=== PATIENT | female | born 1945 | race Caucasian/White ===

== ENCOUNTER 2016-08-12 02:39 | Inpatient (IN) | payer OTHER ==
[~2016-08-12] VITALS: Ht 162.6 cm; Wt 106.7 kg
[~2016-08-12 02:39] MED LIST: ADVAIR 250/501 DISK IH; ALBUTEROL SULF8.5 GM IH; ALBUTEROL2.5 MG/3 M IH; AMIODARONE HCL200 MG PO; AMLODIPINE BESYL5 MG PO; ASCORBIC ACID500 M3 PO; ASPIR-LOW81 MG PO; ASPIRIN325 MG PO; ASPIRIN81 M2 PO; AZITHROMYCIN250 MG PO; AZITHROMYCIN500 M1 PO; Ascorbic Acid,Ester- PO; BENADRYL25 MG PO; CARDIZEM CD,CA120 MG PO; CARDIZEM CD120 M1 PO; CARDIZEM LA240 MG PO; CARDIZEM120 MG PO; CARDIZEM60 MG PO; CELEBREX200 MG PO; COLACE100 MG PO; CRANBERRY FRUIT PO; DAILY VITAMIN1 EAC4 PO; DICYCLOMINE HCL20 MG PO; DOCUSATE SODIU100 M1 PO; DULCOLAX10 MG PR; Dulcolax PO; ENDOCET 5-3251 EACH PO; EXTRA STRENGTH500 M1 PO; FLUOXETINE HCL40 MG; FLUOXETINE HCL40 MG PO; FOLIC ACID1 MG PO; FUROSEMIDE20 MG PO; FUROSEMIDE40 MG PO; Folvite PO; IBUPROFEN200 M1 PO; INHALER; K-DUR10 MEQ PO; KLOR-CON SPRIN10 MEQ PO; LANTUS 3 M100 UNITS1 SC; LASIX20 MG PO; LASIX20 MG/2 ML IM; LASIX40 MG PO; LEVEMIR100 UNIT/2 SC; LEVOTHROID,S0.025 M1 GT; LEVOTHYROXINE25 MCG PO; LEVOTHYROXINE50 MCG PO; LISINOPRIL10 MG PO; LISINOPRIL5 MG PO; LOPRESSOR50 MG PO; LOVAZA1 GM PO; Levothroid,Synthroid PO; Lovaza PO; MATZIM LA240 MG PO; MATZIM LA360 MG PO; METOPROLOL TART25 MG PO; METOPROLOL TART50 MG PO; MULTIVITAMIN1 EAC2 PO; NORVASC5 MG PO; NOVOLOG PE100 UNITS/ SC; Norvasc PO; OXYCODONE HCL5 MG PO; POTASSIUM CHLO10 ME4 PO; POTASSIUM CHLO10 MEQ PO; PRAVACHOL40 MG PO; PRAVASTATIN SOD40 MG PO; PREDNISONE10 MG PO; PREDNISONE20 MG PO; PREDNISONE5 MG PO; PRINZIDE 20-251 EACH PO; PROAIR HFA8.5 GM IH; PROTONIX40 MG PO; PROVENTIL,2.5 MG/3 M IH; PROZAC40 MG PO; PROzac PO; Roxicet,Percocet 5/3 PO; SENNA8.6 MG PO; SENOKOT,SENN1 TABLET PO; SIMVASTATIN40 M1 PO; SIMVASTATIN40 MG PO; SPIRIVA1 INHALATI IH; STOOL SOFTENER100 M1 PO; SYMBICORT60 INHALAT IH; SYNTHROID25 MCG PO; SYNTHROID50 MCG PO; Senokot S,Pericolace PO; TOPROL XL25 MG PO; TUMS500 MG PO; TYLENOL EXTRA500 MG PO; TYLENOL REGULA325 MG PO; Theragran PO; VICODIN,LORT1 TABLET PO; VITAMIN C500 M1 PO; WARFARIN SODIUM4 MG PO; WARFARIN SODIUM5 MG PO; XARELTO20 MG PO; ZESTORETIC 20-1 EAC1; Zestoretic,Prinzide PO; celeBREX PO; oxyCODONE PO
[2016-08-12 03:14] LABS: HEMATOCRIT 38.7 % (36.0-46.0); MCH 28.2 PG (29.0-34.0); MCHC 31.8 G/DL (30.0-36.0); MCV 88.8 FL (83-99); MEAN PLAT.VOLUME 10.1 uM^3 (9.5-12.4); PLATELET COUNT 279 K/uL (156-360); RBC DIS.WIDTH-CV 15.9 % (11.8-14.6); RBC DIS.WIDTH-SD 51.9 % (39-53); RED BLOOD COUNT 4.36 M/uL (3.80-5.20); WHITE BLOOD COUNT 9.7 K/uL (4.1-10.2)
[2016-08-12 03:22] LABS: CHLORIDE 105 mEq/L (99-109); POTASSIUM 3.8 mEq/L (3.7-5.4); SODIUM 136 mEq/L (136-147)
[2016-08-12 03:23] LABS: PTT 40.4 (25-32)
[2016-08-12 03:24] LABS: GLUCOSE 92 mg/dL (70-99); PROTHROMBIN TIME 53.1 (9.2-11.2)
[2016-08-12 03:25] LABS: ANION GAP 9 MEQ/L (2-14)
[2016-08-12 03:27] LABS: GFR ESTIMATE (CALCULATED) 52 mL/min/
[2016-08-12 03:28] LABS: UREA NITROGEN (BUN) 38 mg/dL (9-23)
[2016-08-12 03:35] LABS: TROP-I INTERPRETATION NEGATIVE; TROPONIN-I 0.04 ng/mL (0.0-0.30)
[2016-08-12] MEDS ORDERED: LISINOPRIL10 MG PO (04:52)
[2016-08-12] MEDS ORDERED: CARBIDOPA-LEVO1 EAC5 PO (05:06)
[2016-08-12] MEDS ORDERED: DILTIAZEM 24HR120 MG PO (05:06)
[2016-08-12] MEDS ORDERED: ALLERGY RELIE15.8 ML BOTH NARES (05:07)
[2016-08-12] MEDS ORDERED: BREO ELLIPTA I1 EACH IH (05:07)
[2016-08-12] MEDS ORDERED: BUMETANIDE1 MG PO (05:07)
[2016-08-12] MEDS ORDERED: INCRUSE ELLI62.5 MCG IH (05:08)
[2016-08-12 09:16] LABS: ADD MIUA? YES; BILIRUBIN NEGATIVE; BLOOD SMALL; COLOR YELLOW ((YELLOW)); GLUCOSE (STRIP) NEGATIVE; KETONES NEGATIVE; LEUKOCYTES SMALL; NITRITE NEGATIVE; PROTEIN (STRIP) NEGATIVE; UROBILINOGEN 0.2 MG/DL (0.2-1.0)
[2016-08-12 09:22] LABS: BACTERIA RARE /HPF; EPITHELIAL CELLS RARE /HPF; MUCUS NONE SEEN /LPF; UCUL ADDED? NO
[2016-08-12 09:37] LABS: HEMATOCRIT 38.7 % (36.0-46.0); MCH 28.2 PG (29.0-34.0); MCHC 31.3 G/DL (30.0-36.0); MCV 90.2 FL (83-99); MEAN PLAT.VOLUME 10.5 uM^3 (9.5-12.4); PLATELET COUNT 269 K/uL (156-360); RBC DIS.WIDTH-CV 16.2 % (11.8-14.6); RBC DIS.WIDTH-SD 53.4 % (39-53); RED BLOOD COUNT 4.29 M/uL (3.80-5.20); WHITE BLOOD COUNT 10.9 K/uL (4.1-10.2)
[2016-08-12 09:50] LABS: CHLORIDE 105 mEq/L (99-109); POTASSIUM 3.6 mEq/L (3.7-5.4); SODIUM 137 mEq/L (136-147)
[2016-08-12 09:52] LABS: GLUCOSE 98 mg/dL (70-99)
[2016-08-12 09:53] LABS: ANION GAP 10 MEQ/L (2-14)
[2016-08-12 09:54] LABS: TOTAL BILIRUBIN 0.5 mg/dL (0.0-1.0)
[2016-08-12 09:55] LABS: ALKALINE PHOSPHATASE 89 IU/L (3-129)
[2016-08-12 09:56] LABS: GFR ESTIMATE (CALCULATED) 58 mL/min/
[2016-08-12 09:57] LABS: UREA NITROGEN (BUN) 32 mg/dL (9-23)
[2016-08-12 09:58] LABS: PROTHROMBIN TIME 48.5 (9.2-11.2); PTT 41.1 (25-32)
[2016-08-12 10:01] LABS: INTER. NORMALIZED RATIO 4.5; TROP-I INTERPRETATION NEGATIVE; TROPONIN-I 0.03 ng/mL (0.0-0.30)
[2016-08-12 12:50] VITALS: BP 102/70
[2016-08-12 15:15] LABS: TROP-I INTERPRETATION NEGATIVE; TROPONIN-I 0.05 ng/mL (0.0-0.30)
[2016-08-12 17:15] VITALS: BP 132/71
[2016-08-12 19:13] VITALS: BP 94/50
[2016-08-12 23:44] VITALS: BP 106/56
[2016-08-13 04:27] VITALS: BP 127/78
[2016-08-13 06:06] LABS: EOSINOPHIL (%) 1.4 % (0-5); EOSINOPHIL COUNT 0.1 K/uL (0-0.3); HEMATOCRIT 36.9 % (36.0-46.0); IMMATURE GRANULOCYTE (%) 0.7 % (0.0-0.7); IMMATURE GRANULOCYTE COUNT 0.1 K/uL; INSTRUMENT ABS NEUTROPHIL CT 5.5 K/uL; LYMPHOCYTE COUNT 0.9 K/uL (1.0-2.8); MCH 28.2 PG (29.0-34.0); MCHC 31.2 G/DL (30.0-36.0); MCV 90.4 FL (83-99); MEAN PLAT.VOLUME 10.5 uM^3 (9.5-12.4); MONOCYTE (%) 7.9 % (3-12); MONOCYTE COUNT 0.6 K/uL (0-0.8); NEUTROPHIL (%) 76.4 % (45-76); NEUTROPHIL COUNT 5.5 K/uL (1.8-6.4); PLATELET COUNT 205 K/uL (156-360); RBC DIS.WIDTH-CV 15.9 % (11.8-14.6); RBC DIS.WIDTH-SD 52.9 % (39-53); RED BLOOD COUNT 4.08 M/uL (3.80-5.20); WHITE BLOOD COUNT 7.1 K/uL (4.1-10.2)
[2016-08-13 06:21] LABS: INTER. NORMALIZED RATIO 4.3; PROTHROMBIN TIME 45.5 (9.2-11.2); PTT 45.2 (25-32)
[2016-08-13 06:22] LABS: INTER. NORMALIZED RATIO 4.3; PROTHROMBIN TIME 45.5 (9.2-11.2)
[2016-08-13 06:29] LABS: ANION GAP 10 MEQ/L (2-14); CHLORIDE 105 MEQ/L (99-109); GFR ESTIMATE (CALCULATED) 58 mL/min/; GLUCOSE 86 mg/dL (70-99); SAMPLE HEMOLYSIS CHECK 0; SAMPLE ICTERIC CHECK 0; SAMPLE LIPEMIA CHECK 0; SODIUM 138 MEQ/L (136-147); UREA NITROGEN (BUN) 27 mg/dL (9-23)
[2016-08-13 07:17] VITALS: BP 109/70
[2016-08-13 11:04] VITALS: BP 105/67
[2016-08-13 15:11] VITALS: BP 113/58
[2016-08-13 19:05] VITALS: BP 127/73
[2016-08-14 00:01] VITALS: BP 136/56
[2016-08-14 05:36] LABS: PTT 41.4 (25-32)
[2016-08-14 05:59] LABS: INTER. NORMALIZED RATIO 2.9; PROTHROMBIN TIME 30.7 (9.2-11.2)
[2016-08-14 06:34] LABS: ANION GAP 9 MEQ/L (2-14); CHLORIDE 106 MEQ/L (99-109); GFR ESTIMATE (CALCULATED) > 59 mL/min/; POTASSIUM 4.1 MEQ/L (3.7-5.4); SAMPLE HEMOLYSIS CHECK 0; SAMPLE ICTERIC CHECK 0; SAMPLE LIPEMIA CHECK 0; SODIUM 139 MEQ/L (136-147); UREA NITROGEN (BUN) 23 mg/dL (9-23)
[2016-08-14 06:37] LABS: GLUCOSE 109 mg/dL (70-99)
[2016-08-14 07:30] VITALS: BP 106/52
[2016-08-14] MEDS ORDERED: LISINOPRIL10 MG PO (10:47)
[2016-08-14] MEDS ORDERED: DILTIAZEM 24HR120 MG PO (10:47)
[2016-08-14] MEDS ORDERED: DIGOXIN250 MCG PO (10:57)
[2016-08-14 10:59] VITALS: BP 116/63
[2016-08-14] MEDS ORDERED: COUMADIN3 MG PO (13:28)
== END 2016-08-14 14:29 | disposition home health service (06) | DRG 309 ==
LOC: EME 02:39 → EDOF 05:53 → 4EAST 05:53
PROVIDERS: Emergency Medicine; Hospitalist; Internal Medicine; Student in an Organized Health Care Education/Training Program
DX: I48.0 Paroxysmal atrial fibrillation (principal); I42.9 Cardiomyopathy, unspecified; I50.32 Chronic diastolic (congestive) heart failure; I11.0 Hypertensive heart disease with heart failure; G20 Parkinson's disease; E11.9 Type 2 diabetes mellitus without complications; D64.9 Anemia, unspecified; E03.9 Hypothyroidism, unspecified; K21.9 Gastro-esophageal reflux disease without esophagitis; E78.5 Hyperlipidemia, unspecified; I25.10 Atherosclerotic heart disease of native coronary artery without angina pectoris; I27.2 Other secondary pulmonary hypertension; I27.81 Cor pulmonale (chronic); I49.5 Sick sinus syndrome; J44.9 Chronic obstructive pulmonary disease, unspecified; N39.0 Urinary tract infection, site not specified; R79.1 Abnormal coagulation profile; Z68.39 Body mass index [BMI] 39.0-39.9, adult; Z79.01 Long term (current) use of anticoagulants; Z87.891 Personal history of nicotine dependence; Z95.1 Presence of aortocoronary bypass graft; Z95.2 Presence of prosthetic heart valve; E66.9 Obesity, unspecified; I95.2 Hypotension due to drugs; T46.1X5A Adverse effect of calcium-channel blockers, initial encounter; I08.3 Combined rheumatic disorders of mitral, aortic and tricuspid valves; Z66 Do not resuscitate
CPT/HCPCS: 36415; 71020; 80048; 80053; 81003; 83605; 83880; 84439; 84443; 84484; 85025; 85027; 85610; 85730; 87040; 93005; 93306; 94640; 94640 76; 99202; 99281; 99284; J0610; J0696; J1160; J1940; J7030; J7040; J7050

== ENCOUNTER 2017-08-09 07:21 | Inpatient (IN) | payer OTHER ==
[~2017-08-09] VITALS: Ht 162.6 cm; Wt 111.8 kg
[~2017-08-09 07:21] MED LIST changes: +ALLERGY RELIE15.8 ML BOTH NARES; +BREO ELLIPTA I1 EACH IH; +BUMETANIDE1 MG PO; +CARBIDOPA-LEVO1 EAC5 PO; +COUMADIN3 MG PO; +DIGOXIN250 MCG PO; +DILTIAZEM 24HR120 MG PO; +INCRUSE ELLI62.5 MCG IH
[2017-08-09 08:35] LABS: HEMATOCRIT 40.7 % (36.0-46.0); HEMOGLOBIN 13.3 G/DL (11.9-15.5); MCH 29.4 PG (29.0-34.0); MCHC 32.7 G/DL (30.0-36.0); PLATELET COUNT 354 K/uL (156-360); RBC DIS.WIDTH-SD 46.3 % (39-53); RED BLOOD COUNT 4.52 M/uL (3.80-5.20); WHITE BLOOD COUNT 8.1 K/uL (4.1-10.2)
[2017-08-09 08:40] LABS: INTER. NORMALIZED RATIO 2.6
[2017-08-09 08:43] LABS: ALBUMIN 4.3 g/dL (3.2-4.8)
[2017-08-09 08:44] LABS: CHLORIDE 103 mEq/L (99-109); POTASSIUM 4.2 mEq/L (3.7-5.4); SODIUM 143 mEq/L (136-147)
[2017-08-09 08:46] LABS: GLUCOSE 79 mg/dL (70-99); TOTAL PROTEIN 7.9 g/dL (6.4-8.3)
[2017-08-09 08:48] LABS: TOTAL BILIRUBIN 0.3 mg/dL (0.0-1.0)
[2017-08-09 08:49] LABS: ALKALINE PHOSPHATASE 104 IU/L (3-129)
[2017-08-09 08:50] LABS: CREATININE 1.1 mg/dL (0.6-1.3); GFR ESTIMATE (CALCULATED) 52 mL/min/
[2017-08-09 08:51] LABS: AST (GOT) 27 IU/L (2-34); UREA NITROGEN (BUN) 36 mg/dL (9-23)
[2017-08-09 08:52] LABS: ALT (GPT) 30 IU/L (3-49)
[2017-08-09 08:55] LABS: TROP-I INTERPRETATION NEGATIVE; TROPONIN-I 0.01 ng/mL (0.0-0.30)
[2017-08-09 09:18] LABS: PTT 36.4 SEC (25-37)
[2017-08-09 11:40] VITALS: BP 143/57
[2017-08-09] MEDS ORDERED: ZESTRIL10 MG PO (12:23)
[2017-08-09] MEDS ORDERED: COUMADIN4 MG PO (12:23)
[2017-08-09] MEDS ORDERED: DOXYCYCLINE HY100 M3 PO (12:23)
[2017-08-09] MEDS ORDERED: BENADRYL25 MG PO (12:23)
[2017-08-09 15:51] VITALS: BP 110/70
[2017-08-09] MEDS ORDERED: FUROSEMIDE40 MG PO (17:19)
[2017-08-09 19:17] VITALS: BP 123/77
[2017-08-09 22:20] VITALS: BP 138/77
[2017-08-10 03:25] VITALS: BP 121/69
[2017-08-10 04:55] LABS: HEMATOCRIT 39.7 % (36.0-46.0); HEMOGLOBIN 12.4 G/DL (11.9-15.5); MCH 28.3 PG (29.0-34.0); MCHC 31.2 G/DL (30.0-36.0); MCV 90.6 FL (83-99); PLATELET COUNT 283 K/uL (156-360); RBC DIS.WIDTH-CV 13.8 % (11.8-14.6); RBC DIS.WIDTH-SD 46.5 % (39-53); RED BLOOD COUNT 4.38 M/uL (3.80-5.20); WHITE BLOOD COUNT 6.8 K/uL (4.1-10.2)
[2017-08-10 05:15] LABS: INTER. NORMALIZED RATIO 2.8
[2017-08-10 05:24] LABS: CHLORIDE 102 MEQ/L (99-109); CREATININE 1.1 MG/DL (0.6-1.3); GFR ESTIMATE (CALCULATED) 52 mL/min/; GLUCOSE 95 mg/dL (70-99); POTASSIUM 4.1 MEQ/L (3.7-5.4); SODIUM 137 MEQ/L (136-147); UREA NITROGEN (BUN) 28 mg/dL (9-23)
[2017-08-10 07:14] VITALS: BP 104/77
[2017-08-10 12:17] VITALS: BP 116/77
[2017-08-10 16:16] VITALS: BP 109/59
[2017-08-10 19:19] VITALS: BP 107/63
[2017-08-10 23:05] VITALS: BP 117/73
[2017-08-11 03:15] VITALS: BP 99/59
[2017-08-11 05:29] LABS: INTER. NORMALIZED RATIO 2.8
[2017-08-11 05:52] LABS: CHLORIDE 100 MEQ/L (99-109); CREATININE 0.9 MG/DL (0.6-1.3); GFR ESTIMATE (CALCULATED) > 59 mL/min/; GLUCOSE 110 mg/dL (70-99); MAGNESIUM 1.9 mg/dl (1.3-2.7); POTASSIUM 3.7 MEQ/L (3.7-5.4); SODIUM 138 MEQ/L (136-147); UREA NITROGEN (BUN) 21 mg/dL (9-23)
[2017-08-11 08:04] VITALS: BP 121/71
[2017-08-11 11:58] VITALS: BP 99/58
[2017-08-11 15:29] VITALS: BP 129/65
[2017-08-11 20:43] VITALS: BP 122/70
[2017-08-11 23:28] VITALS: BP 109/77
[2017-08-12 04:52] VITALS: BP 112/59
[2017-08-12 05:34] LABS: INTER. NORMALIZED RATIO 2.9
[2017-08-12 08:04] VITALS: BP 119/75
[2017-08-12 11:47] VITALS: BP 121/56
[2017-08-12 15:42] VITALS: BP 116/61
[2017-08-12 19:30] VITALS: BP 118/76
[2017-08-12 23:49] VITALS: BP 102/58
[2017-08-13 05:19] VITALS: BP 100/64
[2017-08-13 06:13] LABS: INTER. NORMALIZED RATIO 2.9
[2017-08-13 07:55] VITALS: BP 102/61
[2017-08-13] MEDS ORDERED: AZITHROMYCIN250 MG PO (10:25)
[2017-08-13] MEDS ORDERED: SOTALOL80 MG PO (10:34)
[2017-08-13] MEDS ORDERED: LISINOPRIL2.5 MG PO (10:35)
== END 2017-08-13 11:26 | disposition home or self-care (01) | DRG 309 ==
LOC: EME 07:21 → 4EAST 10:28 → EDOF 10:28 → ENRESERV 10:30 → 4EAST 11:39
PROVIDERS: Internal Medicine; Nurse Practitioner Family
DX: I48.2 Chronic atrial fibrillation (principal); E78.5 Hyperlipidemia, unspecified; Z66 Do not resuscitate; G20 Parkinson's disease; I50.22 Chronic systolic (congestive) heart failure; I11.0 Hypertensive heart disease with heart failure; E03.9 Hypothyroidism, unspecified; J44.9 Chronic obstructive pulmonary disease, unspecified; I49.5 Sick sinus syndrome; E11.9 Type 2 diabetes mellitus without complications; I25.10 Atherosclerotic heart disease of native coronary artery without angina pectoris; E66.01 Morbid (severe) obesity due to excess calories; I08.1 Rheumatic disorders of both mitral and tricuspid valves; Z68.41 Body mass index [BMI] 40.0-44.9, adult; I42.9 Cardiomyopathy, unspecified; Z96.652 Presence of left artificial knee joint; Z95.3 Presence of xenogenic heart valve; Z95.1 Presence of aortocoronary bypass graft; Z79.01 Long term (current) use of anticoagulants; Z87.891 Personal history of nicotine dependence
CPT/HCPCS: 36415; 71046; 80048; 80053; 83735; 83880; 84484; 85027; 85610; 85730; 93005; 94640; 94640 76; 99202; 99281; 99284; J1160

== ENCOUNTER 2017-08-19 00:15 | Inpatient (IN) | payer OTHER ==
[2017-08-19] VITALS (22 sets, daily range): BP systolic 88–143; BP diastolic 46–72
[~2017-08-19] VITALS: Ht 162.6 cm; Wt 116.2 kg
[~2017-08-19 00:15] MED LIST changes: +COUMADIN4 MG PO; +DOXYCYCLINE HY100 M3 PO; +LISINOPRIL2.5 MG PO; +SOTALOL80 MG PO; +ZESTRIL10 MG PO
[2017-08-19 00:38] LABS: HEMATOCRIT 37.8 % (36.0-46.0); HEMOGLOBIN 11.9 G/DL (11.9-15.5); MCH 28.7 PG (29.0-34.0); MCHC 31.5 G/DL (30.0-36.0); MCV 91.3 FL (83-99); PLATELET COUNT 280 K/uL (156-360); RBC DIS.WIDTH-CV 14.1 % (11.8-14.6); RBC DIS.WIDTH-SD 47.3 % (39-53); RED BLOOD COUNT 4.14 M/uL (3.80-5.20); WHITE BLOOD COUNT 9.4 K/uL (4.1-10.2)
[2017-08-19 00:51] LABS: CHLORIDE 102 mEq/L (99-109); POTASSIUM 4.4 mEq/L (3.7-5.4); SODIUM 137 mEq/L (136-147)
[2017-08-19 00:52] LABS: CARBON DIOXIDE (BICARBONATE) 25.7 MEQ/L (20-31)
[2017-08-19 00:53] LABS: GLUCOSE 120 mg/dL (70-99)
[2017-08-19 00:56] LABS: CREATININE 1.4 mg/dL (0.6-1.3); GFR ESTIMATE (CALCULATED) 39 mL/min/
[2017-08-19 00:57] LABS: UREA NITROGEN (BUN) 34 mg/dL (9-23)
[2017-08-19 01:02] LABS: TROP-I INTERPRETATION NEGATIVE; TROPONIN-I 0.02 ng/mL (0.0-0.30)
[2017-08-19] MEDS ORDERED: LISINOPRIL2.5 MG PO (01:30)
[2017-08-19 02:19] LABS: INTER. NORMALIZED RATIO 3.6
[2017-08-19 05:33] LABS: HEMATOCRIT 33.5 % (36.0-46.0); HEMOGLOBIN 10.5 G/DL (11.9-15.5); MCHC 31.3 G/DL (30.0-36.0); MCV 92.5 FL (83-99); PLATELET COUNT 240 K/uL (156-360); RBC DIS.WIDTH-SD 47.3 % (39-53); RED BLOOD COUNT 3.62 M/uL (3.80-5.20); WHITE BLOOD COUNT 13.4 K/uL (4.1-10.2)
[2017-08-19 05:34] LABS: BASOPHIL (%) 0.4 % (0-1); BASOPHIL COUNT 0.1 K/uL (0-0.1); EOSINOPHIL (%) 0.7 % (0-5); EOSINOPHIL COUNT 0.1 K/uL (0-0.3); IMMATURE GRANULOCYTE (%) 0.7 % (0.0-0.7); LYMPHOCYTE (%) 5.5 % (15-42); LYMPHOCYTE COUNT 0.7 K/uL (1.0-2.8); MONOCYTE (%) 3.4 % (3-12); MONOCYTE COUNT 0.5 K/uL (0-0.8); NEUTROPHIL (%) 89.3 % (45-76); NEUTROPHIL COUNT 11.9 K/uL (1.8-6.4)
[2017-08-19 06:15] LABS: CHLORIDE 102 MEQ/L (99-109); CREATININE 1.1 MG/DL (0.6-1.3); GFR ESTIMATE (CALCULATED) 52 mL/min/; GLUCOSE 133 mg/dL (70-99); MAGNESIUM 1.9 mg/dl (1.3-2.7); PHOSPHORUS 3.1 mg/dL (2.5-4.9); POTASSIUM 4.1 MEQ/L (3.7-5.4); SODIUM 135 MEQ/L (136-147); UREA NITROGEN (BUN) 31 mg/dL (9-23)
[2017-08-19 08:34] LABS: INTER. NORMALIZED RATIO 3.8
[2017-08-19 08:37] LABS: PTT 43.1 SEC (25-37)
[2017-08-20] VITALS (17 sets, daily range): BP systolic 97–155; BP diastolic 54–83
[2017-08-20 05:28] LABS: HEMATOCRIT 33.4 % (36.0-46.0); HEMOGLOBIN 10.6 G/DL (11.9-15.5); MCHC 31.7 G/DL (30.0-36.0); MCV 91.3 FL (83-99); PLATELET COUNT 215 K/uL (156-360); RBC DIS.WIDTH-CV 14.2 % (11.8-14.6); RBC DIS.WIDTH-SD 47.2 % (39-53); RED BLOOD COUNT 3.66 M/uL (3.80-5.20); WHITE BLOOD COUNT 5.3 K/uL (4.1-10.2)
[2017-08-20 05:36] LABS: INTER. NORMALIZED RATIO 3.1
[2017-08-20 05:58] LABS: CHLORIDE 105 MEQ/L (99-109); CREATININE 0.8 MG/DL (0.6-1.3); GFR ESTIMATE (CALCULATED) > 59 mL/min/; MAGNESIUM 1.8 mg/dl (1.3-2.7); PHOSPHORUS 3.7 mg/dL (2.5-4.9); SODIUM 137 MEQ/L (136-147); UREA NITROGEN (BUN) 23 mg/dL (9-23)
[2017-08-20 06:04] LABS: GLUCOSE 88 mg/dL (70-99)
[2017-08-21 00:32] VITALS: BP 171/111
[2017-08-21 03:47] VITALS: BP 117/62
[2017-08-21 06:06] LABS: INTER. NORMALIZED RATIO 2.3
[2017-08-21 06:13] LABS: HEMATOCRIT 33.2 % (36.0-46.0); HEMOGLOBIN 10.3 G/DL (11.9-15.5); MCH 28.6 PG (29.0-34.0); MCV 92.2 FL (83-99); PLATELET COUNT 225 K/uL (156-360); RBC DIS.WIDTH-CV 14.4 % (11.8-14.6); RBC DIS.WIDTH-SD 48.5 % (39-53); WHITE BLOOD COUNT 5.2 K/uL (4.1-10.2)
[2017-08-21 06:41] LABS: CHLORIDE 106 MEQ/L (99-109); GFR ESTIMATE (CALCULATED) 58 mL/min/; GLUCOSE 102 mg/dL (70-99); MAGNESIUM 1.6 mg/dl (1.3-2.7); PHOSPHORUS 3.3 mg/dL (2.5-4.9); SODIUM 140 MEQ/L (136-147); UREA NITROGEN (BUN) 17 mg/dL (9-23)
[2017-08-21 07:30] VITALS: BP 130/67
[2017-08-21 11:44] VITALS: BP 147/66
[2017-08-21 15:24] VITALS: BP 172/104
[2017-08-21 19:22] VITALS: BP 142/72
[2017-08-22 03:13] VITALS: BP 162/89
[2017-08-22 06:14] LABS: HEMATOCRIT 32.4 % (36.0-46.0); HEMOGLOBIN 10.2 G/DL (11.9-15.5); MCH 28.9 PG (29.0-34.0); MCHC 31.5 G/DL (30.0-36.0); MCV 91.8 FL (83-99); PLATELET COUNT 221 K/uL (156-360); RBC DIS.WIDTH-CV 14.2 % (11.8-14.6); RBC DIS.WIDTH-SD 47.6 % (39-53); RED BLOOD COUNT 3.53 M/uL (3.80-5.20); WHITE BLOOD COUNT 5.3 K/uL (4.1-10.2)
[2017-08-22 06:26] LABS: INTER. NORMALIZED RATIO 1.8
[2017-08-22 06:37] LABS: CHLORIDE 106 MEQ/L (99-109); CREATININE 0.9 MG/DL (0.6-1.3); GFR ESTIMATE (CALCULATED) > 59 mL/min/; GLUCOSE 107 mg/dL (70-99); MAGNESIUM 1.7 mg/dl (1.3-2.7); PHOSPHORUS 3.3 mg/dL (2.5-4.9); POTASSIUM 4.5 MEQ/L (3.7-5.4); SODIUM 140 MEQ/L (136-147); UREA NITROGEN (BUN) 13 mg/dL (9-23)
[2017-08-22 07:13] VITALS: BP 109/56
[2017-08-22 11:34] VITALS: BP 140/72
[2017-08-22] MEDS ORDERED: CORDARONE200 MG PO (12:19)
== END 2017-08-22 14:32 | disposition home health service (06) | DRG 309 ==
LOC: EME 00:15 → 5EAST 01:01 → 5SOUTH 01:01 → EDOF 01:01 → 4WEST 01:01 → ENRESERV 01:04 → ENRESERVTM 01:43 → ENRESERVDT 01:43 → ENRESERV 01:43 → 4WEST 02:27 → 5EAST 08-20 14:01 → ENRESERV 08-20 14:10 → CANRESERV 08-20 14:12 → ENRESERV 08-20 14:12 → 4WEST 08-20 14:20 → ENRESERV 08-20 14:25 → 5SOUTH 08-20 17:30
PROVIDERS: Emergency Medicine; Specialist
DX: I49.5 Sick sinus syndrome (principal); T44.7X5A Adverse effect of beta-adrenoreceptor antagonists, initial encounter; N17.9 Acute kidney failure, unspecified; I95.9 Hypotension, unspecified; J44.9 Chronic obstructive pulmonary disease, unspecified; E78.5 Hyperlipidemia, unspecified; I27.20 Pulmonary hypertension, unspecified; I07.1 Rheumatic tricuspid insufficiency; Z87.891 Personal history of nicotine dependence; I25.10 Atherosclerotic heart disease of native coronary artery without angina pectoris; I48.0 Paroxysmal atrial fibrillation; I42.0 Dilated cardiomyopathy; Z95.1 Presence of aortocoronary bypass graft; E66.9 Obesity, unspecified; Z68.41 Body mass index [BMI] 40.0-44.9, adult; Z96.652 Presence of left artificial knee joint; Z95.3 Presence of xenogenic heart valve; Z95.0 Presence of cardiac pacemaker; G20 Parkinson's disease; I10 Essential (primary) hypertension; Z79.01 Long term (current) use of anticoagulants; Z66 Do not resuscitate
CPT/HCPCS: 71045; 80047; 80048; 80048 91; 82803; 82948; 83605; 83735; 83880; 84100; 84484; 85025; 85027; 85610; 85730; 87040; 87641; 93005; 94640; 99281; 99285; J2405; J7050; J7120